=== PATIENT | female | born 1940 | race Caucasian/White ===

== ENCOUNTER 2016-12-27 09:12 | Day surgery (SDC) | payer MEDICARE ==
--- NOTE | 2016-12-27 08:13 | HP ---
DATE OF SURGERY: 12/27/2016 HISTORY OF PRESENT ILLNESS: The patient is a 76 year-old with problems with mid to upper esophagus, trouble swallowing, esophagus completely a few weeks ago and had last dilatation five years ago in [place]. She has worse swallowing problems and in need of upper endoscopy possible dilatation. PAST MEDICAL HISTORY: Neuropathy, diverticulosis, gastritis, reflux, esophageal problems in the past. Hard of hearing. PAST SURGICAL HISTORY: She had endoscopy in the past. Appendectomy, cholecystectomy, tonsillectomy, eye surgery, neck surgery, hernia repair. MEDICATIONS: None on a regular basis. ALLERGIES: ALLERGY TO SOME MEDICATION THE NAME OF WHICH SHE DID NOT KNOW. ALL ORAL MEDICINES CAUSE VOMITING, DIARRHEA, RASH ACCORDING TO THE PATIENT. FAMILY HISTORY: Stroke, hypertension, high blood pressure, heart disease, diabetes, cancer. SOCIAL HISTORY: No smoking or alcohol abuse. REVIEW OF SYSTEMS: Ten systems reviewed per admission assessment and as noted above. Negative or noncontributory as noted above. PHYSICAL EXAMINATION: GENERAL: No acute distress. HEENT: Sclerae nonicteric. NECK: No JVD. CHEST: Equal excursion, nonlabored breathing. CVS: Regular rate and rhythm. ABDOMEN: Soft. No peritoneal signs. EXTREMITIES: No significant edema. NEURO: Alert, moving extremities symmetrically. No gross motor deficits noted. IMPRESSION: Dysphagia, whether she has esophagitis, reflux or other etiology is unclear. She is not taking any medications at this point. I felt she would benefit from upper endoscopy possible biopsy, possible dilatation pending on operative findings. Risks and benefits explained in detail but not limited to bleeding or infection, small risk of bowel injury or perforation possibly requiring open procedure, risk of ongoing morbidity/mortality, small risk of missed or nondiagnosis or incomplete exam, possibility that she could have more of a functional problem with mechanical narrowing, possibility of no improvement in her symptoms, possibility of requiring referral to a specialist, other procedures. She understands and agrees to the planned procedure and will proceed with EGD, possible biopsy, possible dilatation as an outpatient.
[~2016-12-27 09:12] MED LIST: DIPRIVAN 200 MG/20 ML IV ONE; Ketamine HCl 50 MG/ML IV ONE; Lactated Ringers 1,000 ML IV SCH
[2016-12-27] MEDS ORDERED: Lactated Ringers 1,000 ML IV ONE (09:19)
--- NOTE | 2016-12-27 11:16 | OP ---
SURGERY DATE/TIME: 12/27/2016 0958 PREOPERATIVE DIAGNOSIS: Dysphagia. POSTOPERATIVE DIAGNOSES: 1) Mild erosive gastritis. 2) Question of hiatal hernia. 3) Proximal esophageal narrowing and spasm. PROCEDURES: 1) EGD with cold biopsy of antrum for Helicobacter pylori. 2) Esophageal balloon dilatation proximal esophagus (up to size 20 balloon dilator). SURGEON: Dr. Jasiel Pardo. ANESTHESIA: MAC. ESTIMATED BLOOD LOSS: Minimal. INDICATIONS: As noted above. Risks and benefits explained in detail and not limited to and consent obtained. DESCRIPTION OF PROCEDURE AND FINDINGS: The patient was taken to the operating room. MAC anesthesia induced. After official time out and no disagreement with planned procedure, bite block positioned. Video gastroscope easily passed down the oropharynx. There was proximal esophageal narrowing and spasm, this is where she is having her symptoms. There was no marshall mass here but it was felt that she would benefit from dilatation of this area. The scope was able to be passed through this down through the gastroesophageal junction down through the patent pylorus to the junction of the second and third portion of duodenum. Duodenum and duodenal bulb grossly unremarkable. Back in the stomach there was some mild erosive gastritis, some patchy areas of erosions. Cold biopsy is taken to evaluate for Helicobacter pylori. Good hemostasis noted. On retroflex, it appeared that she had hiatal hernia although difficult to tell the degree of it given the angulation of her stomach. The scope was straightened. There were no signs of any obvious masses, polyps or other mucosal lesions. The scope straightened. The gastroesophageal junction noted to be about 34 cm. Z-line was crisp. No signs of any marshall esophagitis, masses, or narrowing down this area. The remainder of the esophagus grossly unremarkable. Tertiary contractions of the esophagus. Again, the proximal esophagus was narrow. There were no signs of any obvious masses. As she is having symptoms, it was felt that she would benefit from dilatation of the area. The scope was then passed back the stomach. Balloon catheter carefully inserted and pulled back up to the proximal esophagus and carefully inflated through two stages for about 30 to 45 seconds a piece and then the final stage up to size 20 balloon dilator less than 2 minutes. The balloon had been deflated and then removed. The scope passed back down the stomach and then gradually withdrawn. Again the area was much more widely patent. There was no evidence of any full thickness issues or injury secondary to balloon dilatation. The scope was withdrawn. The patient tolerated the procedure well. Findings discussed with the family out in the waiting area.
[2016-12-27 12:45] VITALS: BP 138/78; PULSE 56
[2016-12-27 12:46] VITALS: O2SAT 99
== END 2016-12-27 12:30 | disposition home or self-care (01) ==
LOC: SDC 09:12
PROVIDERS: ATTEND Surgery
PROC: 0DB68ZX Excision of Stomach, Via Natural or Artificial Opening Endoscopic, Diagnostic (ICD-10-PCS; principal; 2016-12-27)
PROC: 0D718ZZ Dilation of Upper Esophagus, Via Natural or Artificial Opening Endoscopic (ICD-10-PCS; 2016-12-27)
DX: K29.00 Acute gastritis without bleeding (principal); K22.2 Esophageal obstruction; K22.4 Dyskinesia of esophagus; K21.9 Gastro-esophageal reflux disease without esophagitis; R13.10 Dysphagia, unspecified; G62.9 Polyneuropathy, unspecified
CPT/HCPCS: 00740; 87081; 99100; C1726; J2704

== ENCOUNTER 2017-04-28 05:56 | Day surgery (SDC) | payer MEDICARE ==
[2017-04-28] MEDS ORDERED: Lactated Ringers 1,000 ML IV SCH (06:30)
--- NOTE | 2017-04-28 07:52 | OP ---
SURGERY DATE/TIME: 04/28/2017 0700 PREOPERATIVE DIAGNOSES: 1) Abdominal pain. 2) History of colon polyps. POSTOPERATIVE DIAGNOSIS: Normal colon. PROCEDURE: Colonoscopy. SURGEON: Pierre Webber M.D. ANESTHESIA: MAC by Ismael Olivas CRNA. ESTIMATED BLOOD LOSS: None. SPECIMENS: None. DESCRIPTION OF PROCEDURE: After informed written consent was obtained, the patient was taken to the endoscopy suite. She underwent monitored anesthesia and a digital rectal exam showed normal sphincter tone and no internal lesions. The scope was inserted in the rectum and sequentially the entire colonic mucosa was traversed. The level of cecum was reached and verified with direct visualization of ileocecal valve. Upon withdrawal careful mucosal inspection revealed no gross mucosal abnormalities. Prep was noted to be good. Prior to withdrawal retroflexion was performed and showed no internal lesions. The scope was removed and the patient was transferred to the recovery room in excellent condition.
[2017-04-28] MEDS ORDERED: Versed 2 MG/2 ML Injection IV ONE (08:10)
[2017-04-28] MEDS ORDERED: DIPRIVAN 200 MG/20 ML IV ONE (08:10)
[2017-04-28 08:47] VITALS: BP 119/87; PULSE 57; O2SAT 100
== END 2017-04-28 08:45 | disposition home or self-care (01) ==
LOC: SDC 05:56
PROVIDERS: ATTEND Family Medicine
PROC: 0DJD8ZZ Inspection of Lower Intestinal Tract, Via Natural or Artificial Opening Endoscopic (ICD-10-PCS; principal; 2017-04-28)
DX: R10.9 Unspecified abdominal pain (principal); Z86.010 Personal history of colon polyps
CPT/HCPCS: 00810; 99100; J2250; J2704

== ENCOUNTER 2019-07-30 18:42 | Emergency (ER) | payer MEDICARE ==
[2019-07-30 19:12] VITALS: O2SAT 98
[2019-07-30] MEDS ORDERED: DELTASONE 20 MG PO ONE (19:21)
[2019-07-30] MEDS ORDERED: Pepcid 20 MG PO ONE (19:21)
[2019-07-30] MEDS ORDERED: BENADRYL 25 MG CAPSULE PO ONE (19:22)
[2019-07-30] MEDS ORDERED: DELTASONE 20 MG ONE (19:25)
[2019-07-30] MEDS ORDERED: BENADRYL 25 MG CAPSULE ONE (19:25)
[2019-07-30] MEDS ORDERED: Pepcid 20 MG ONE ×2 (19:25→19:29)
--- NOTE | 2019-07-30 19:36 | ERPHSYRPT ---
- History of Present Illness Source: patient Exam Limitations: no limitations Patient Subjective Stated Complaint: Pt states she got stung on left hand at approximately 1530 today. Swelling, pain, itching, and redness to left hand and up arm to armpit. Denies shortness of breath. States initially she had nausea and lightheadedness but it has subsided. Triage Nursing Assessment: Redness and swelling to entire left hand. Slight redness up in to wrist. Lung sounds clear equal non labored bilaterally. Physician History: patient was stung by a black wasp on the left palm at the base of the thumb 4 hours ago. Patient has localized swelling to the palm, but no other symptoms. Timing/Duration: today, hour(s) (4) Quality: itchy, painful Severity: moderate Location: other (left palm at the thenar eminence) Possible Causes: insect sting Modifying Factors: Improves With: other (cold/ice helps improve the discomfort) Associated Symptoms: No blisters, No change in skin texture, No difficulty breathing, No edema, No fever, No flushing, No headache, No hives, No jaundice, No malaise, No nasal congestion, No numbness, No pallor, No paresthesia, No petechiae, No rash, No sore throat, No swelling/mass/lumps, No tingling Allergies/Adverse Reactions: No Known Drug Allergies Allergy (Unverified 07/30/19 19:16) Hx Tetanus, Diphtheria Vaccination/Date Given: No Hx Influenza Vaccination/Date Given: No Hx Pneumococcal Vaccination/Date Given: No - Review of Systems Constitutional: No Fever, No Chills Eyes: No Discharge, No Eye Redness, No Itchy, No Photophobia, No Double Vision Ears, Nose, & Throat: No Nose Congestion, No Nose Discharge, No Mouth Pain, No Mouth Swelling, No Throat Pain, No Throat Swelling, No Hoarse, No Painful Swallowing, No Stridor Respiratory: No Cough, No Dyspnea Cardiac: No Chest Pain, No Edema, No Syncope Abdominal/Gastrointestinal: No Abdominal Pain, No Nausea, No Vomiting, No Diarrhea Genitourinary Symptoms: No Hematuria, No Urinary Retention Musculoskeletal: No Back Pain, No Neck Pain Skin: No Rash Neurological: No Dizziness, No Focal Weakness, No Sensory Changes Psychological: No Symptoms, No Anxiety, No Hallucinations Endocrine: No Symptoms Hematologic/Lymphatic: No Easy Bleeding, No Easy Bruising All Other Systems: Reviewed and Negative - Past Medical History Pertinent Past Medical History: Yes Neurological History: No Pertinent History ENT History: No Pertinent History Cardiac History: No Pertinent History Respiratory History: No Pertinent History Endocrine Medical History: Liver Disease Musculoskeletal History: Other GI Medical History: Other History: No Pertinent History Psycho-Social History: No Pertinent History Female Reproductive Disorders: No Pertinent History Other Medical History: Undiagnosed abdominal pain. Has CT ordered for this week. - Past Surgical History Past Surgical History: Yes Neuro Surgical History: No Pertinent History Cardiac: No Pertinent History Respiratory: No Pertinent History Gastrointestinal: Appendectomy, Cholecystectomy, Hernia Repair, Other Genitourinary: No Pertinent History Musculoskeletal: No Pertinent History Female Surgical History: Hysterectomy Other Surgical History: Esophageal repair - Social History Smoking Status: Never smoker Exposure to second hand smoke: No Drug Use: none Patient Lives Alone: No - Female History Hx Last Menstrual Period: post Hx Now: No - Nursing Vital Signs Nursing Vital Signs: Initial Vital Signs Temperature 98.0 F 07/30/19 19:04 Pulse Rate 72 07/30/19 19:04 Respiratory Rate 18 07/30/19 19:04 Blood Pressure 158/82 07/30/19 19:04 O2 Sat by Pulse Oximetry 98 07/30/19 19:04 Pain Scale Pain Intensity 5 - Physical Exam SpO2: 98 Ordered Tests: Medication Summary Discontinued Medications Generic Name Dose Route Start Last Admin Trade Name Yusufq PRN Reason Stop Dose Admin Diphenhydramine HCl 25 mg 07/30/19 19:22 07/30/19 19:32 Benadryl 25 Mg Capsule PO 07/30/19 19:23 25 mg STAT ONE Administration Diphenhydramine HCl Confirm 07/30/19 19:25 Benadryl 25 Mg Capsule Administered 07/30/19 19:26 Dose 25 mg .ROUTE .STK-MED ONE Famotidine 40 mg 07/30/19 19:21 07/30/19 19:27 Pepcid 20 Mg PO 07/30/19 19:22 40 mg STAT ONE Administration Famotidine Confirm 07/30/19 19:25 Pepcid 20 Mg Administered 07/30/19 19:26 Dose 20 mg .ROUTE .STK-MED ONE Famotidine Confirm 07/30/19 19:29 Pepcid 20 Mg Administered 07/30/19 19:30 Dose 20 mg .ROUTE .STK-MED ONE Prednisone 60 mg 07/30/19 19:21 07/30/19 19:30 Deltasone 20 Mg PO 07/30/19 19:22 60 mg STAT ONE Administration Prednisone Confirm 07/30/19 19:25 Deltasone 20 Mg Administered 07/30/19 19:26 Dose 60 mg .ROUTE .STK-MED ONE - Departure Departure Disposition: Home Clinical Impression: Elevated blood pressure reading without diagnosis of hypertension Local reaction to insect sting Qualifiers: Encounter type: initial encounter Injury intent: accidental or unintentional Qualified Code(s): T63.481A - Toxic effect of venom of other arthropod, accidental (unintentional), initial encounter Condition: Good Critical Care Time: No Referrals: JANAE SEXTON [Primary Care Provider] - Instructions: DASH Diet, Insect Bites and Stings (DC) Additional Instructions: apply Ice to affected area for 15 minutes on, 45 minutes off QID for 3 days Prescriptions: Loratadine 10 mg [Claritin 10 mg] 10 mg PO DAILY #10 tablet Prednisone 20 mg [Deltasone 20 mg] 60 mg PO DAILY #9 tablet
[2019-07-30 19:48] VITALS: BP 139/83; PULSE 55
== END 2019-07-30 20:00 | disposition home or self-care (01) ==
LOC: ED 18:42
DX: M79.642 Pain in left hand (principal); T63.481A Toxic effect of venom of other arthropod, accidental (unintentional), initial encounter; R03.0 Elevated blood-pressure reading, without diagnosis of hypertension
CPT/HCPCS: 99283; A9270-GY

== ENCOUNTER 2024-07-04 10:29 | Day surgery (SDC) | payer MEDICARE ==
[2013-08-03 13:23] VITALS: BP 118/75
[2024-07-04] MEDS ORDERED: Decadron 4 MG INJ IV ONE (10:30)
[2024-07-04] MEDS ORDERED: Sodium Chloride 0.9(Preservative Free) 10 ML IJ ONE (10:30)
[2024-07-04] MEDS ORDERED: DIPRIVAN 200 MG/20 ML IV ONE (12:27)
[2024-07-04] MEDS ORDERED: Xylocaine-Mpf 2% 5 Ml Vial ONE (12:28)
--- NOTE | 2024-07-04 13:42 | XRAY ---
Indication: Left L4-S1 SUDHA. Intraoperative fluoroscopy provided for 25 seconds. 4 digital spot images submitted for interpretation demonstrates posterior needle tips projecting over the expected left L4 and L5 nerve roots. Small amount of contrast injected for needle tip placement. Correlate with intraoperative findings/report.
--- NOTE | 2024-07-04 13:51 | XRAY ---
25 seconds of fluoroscopy was used in surgery for a left L4-S1 transforaminal SUDHA.
[2024-07-04] MEDS ORDERED: Lactated Ringers 1,000 ML IV ONE (14:33)
== END 2024-07-04 12:53 ==
LOC: SDC-PAIN 10:29
PROVIDERS: ATTEND Psychiatry & Neurology Pain Medicine
DX: M54.16 Radiculopathy, lumbar region (principal)
CPT/HCPCS: 64483; 64484; 72100; 77003; J1100; J2704; Q9966

== ENCOUNTER 2024-12-07 00:16 | Observation (INO) | payer MEDICARE ==
--- NOTE | 2024-12-07 00:42 | ERPHSYRPT ---
- History of Present Illness Time Seen by Provider: 12/07/24 00:23 Historian: patient, family Exam Limitations: no limitations Patient Subjective Stated Complaint: nausea and vomiting since yesterday Triage Nursing Assessment: Pt brought back by wheelchair, spouse at bedside. Pt c/o vomiting and diarrhea off and on x24 hours. Abd soft with active bs x4 quad, nontender on palpation. Physician History: 84-year-old female with history of coronary artery disease, hyperlipidemia, peripheral neuropathy presented in the ER with complaints of nausea vomiting diarrhea with some abdominal discomfort since yesterday. Patient reports having multiple episodes of nonprojectile, nonbilious vomiting without hematemesis and also having multiple episodes of loose watery stool. She is not able to hold much down, feels weak fatigued tired and dehydrated. No fever or chills reported. Denies any known sick contact. Patient blood pressure is in 70s on presentation in the ER. Reports feeling dizzy and lightheaded with standing. Allergies/Adverse Reactions: amoxicillin Adverse Reaction (Verified 12/07/24 00:43) clarithromycin Adverse Reaction (Verified 12/07/24 00:46) levofloxacin Adverse Reaction (Verified 12/07/24 00:45) Tetracyclines Adverse Reaction (Verified 12/07/24 00:45) Home Medications: Aspirin 81 gm Chew [Baby Aspirin 81 mg Chew] 1 tab PO DAILY 12/07/24 [History] Gabapentin 100 mg PO TID 12/07/24 [History] Losartan Potassium 25 mg PO DAILY 12/07/24 [History] Hx Tetanus, Diphtheria Vaccination/Date Given: No Hx Influenza Vaccination/Date Given: No Hx Pneumococcal Vaccination/Date Given: No Travel Risk - International Travel Have you traveled outside of the country in past 3 weeks: No - Emerging Infectious Disease Are you exhibiting symptoms associated with any current EIDs: Yes Symptoms: Diarrhea, Vomitting - Review of Systems Constitutional: Fatigue, Weakness Eyes: No Symptoms Ears, Nose, & Throat: No Symptoms Respiratory: No Symptoms Cardiac: No Symptoms Abdominal/Gastrointestinal: Abdominal Pain, Nausea, Vomiting, Diarrhea Genitourinary Symptoms: No Symptoms Musculoskeletal: No Symptoms Skin: No Symptoms Neurological: No Symptoms Endocrine: No Symptoms - Past Medical History Pertinent Past Medical History: Yes Neurological History: Peripheral Neuropathy ENT History: No Pertinent History Cardiac History: Angina, Coronary Artery Disease, High Cholesterol, Hypertension Respiratory History: No Pertinent History Endocrine Medical History: No Pertinent History Musculoskeletal History: Degenerative Disk Disease, Fractures, Osteoarthritis GI Medical History: Other History: No Pertinent History Psycho-Social History: No Pertinent History Female Reproductive Disorders: No Pertinent History Other Medical History: STATES HIGH CHOLESTEROL BUT NOT ON MEDICATION DUE TO ALLERGIES. STATES HAS OCCASIONAL ANGINA - "VERY SELDOM" - NO NITROGLYCERIN. SEE COMPENSATION AND BENEFITS ANALYST. OTHER PMHX GERD, HIATAL HERNIA, ESOPHAGUS STRICTURE, SKIN CANCER, MACULAR DEGENERATION LEFT EYE, HEARING LOSS RIGHT EAR. SX HX: APPENDECTOMY, CHOLECYSTECTOMY, COMPLETE HYSTERECTOMY, FATTY TUMOR LEFT SCAPULA REGION AND ABDOMINAL WALL, HIATAL HERNIA REPAIR - Past Surgical History Past Surgical History: Yes Neuro Surgical History: No Pertinent History Cardiac: No Pertinent History Respiratory: No Pertinent History Gastrointestinal: Appendectomy, Cholecystectomy, Hernia Repair, Other Genitourinary: No Pertinent History Musculoskeletal: No Pertinent History Female Surgical History: Hysterectomy Other Surgical History: Esophageal repair - Social History Smoking Status: Never smoker Exposure to second hand smoke: No Drug Use: none Patient Lives Alone: No - Social Determinants of Health Will the patient participate in the screening: Yes Do you worry about a steady place to live?: No Do you have any problems with any of the following?: No known problems In the past 12 months,have you had to go without utilities?: No Transportation Issues: No Has anyone in your support network made you feel unsafe?: No Have you or anyone in your house had to go without enough: No - Nursing Vital Signs Nursing Vital Signs: Initial Vital Signs Temperature 97.8 F 12/07/24 00:28 Pulse Rate 100 H 12/07/24 00:28 Respiratory Rate 18 12/07/24 00:28 Blood Pressure 71/54 12/07/24 00:28 O2 Sat by Pulse Oximetry 94 L 12/07/24 00:28 Pain Scale Pain Intensity 3 - Physical Exam General Appearance: no apparent distress, alert Eye Exam: PERRL/EOMI Ears, Nose, Throat Exam: normal ENT inspection Neck Exam: normal inspection, full range of motion Respiratory Exam: normal breath sounds, lungs clear Cardiovascular Exam: regular rate/rhythm, normal heart sounds Gastrointestinal/Abdomen Exam: soft, normal bowel sounds, tenderness (Minimal generalized tenderness to deep palpation) Back Exam: normal inspection, normal range of motion Extremity Exam: normal inspection, normal range of motion Neurologic Exam: alert, oriented x 3, cooperative, spragger II-XII nml as tested, normal mood/affect, nml cerebellar function, nml station & gait, sensation nml, No motor deficits Skin Exam: normal color SpO2 Interpretation: normal SpO2: 94 O2 Delivery: Room Air Ordered Tests: Active Orders 24 hr Category Date Time Status IV Insertion STAT Care 12/07/24 00:38 Active NPO (ED) STAT Care 12/07/24 00:38 Active ABDOMEN AND PELVIS W/0 CONTRAS [CT] Stat Exams 12/07/24 02:18 Completed CBC W DIFF Stat Lab 12/07/24 01:55 Completed CMP Stat Lab 12/07/24 01:55 Completed LIPASE Stat Lab 12/07/24 01:55 Completed UA W/RFX UR CULTURE Stat Lab 12/07/24 00:38 Ordered Medication Summary Discontinued Medications Generic Name Dose Route Start Last Admin Trade Name Freq PRN Reason Stop Dose Admin Sodium Chloride 1,000 mls @ 999 mls/hr 12/07/24 00:38 12/07/24 01:41 Sodium Chloride 0.9% 1000 Ml IV 12/07/24 01:38 999 mls/hr .Q1H1M STA Administration Sodium Chloride Confirm 12/07/24 01:40 Sodium Chloride 0.9% 1000 Ml Administered 12/07/24 01:41 Dose 1,000 mls @ ud .ROUTE .STK-MED ONE Ondansetron HCl 4 mg 12/07/24 00:38 12/07/24 01:41 Ondansetron Hcl 4 Mg/2 Ml Vial IV 12/07/24 00:39 4 mg STAT ONE Administration Ondansetron HCl Confirm 12/07/24 01:40 Ondansetron Hcl 4 Mg/2 Ml Vial Administered 12/07/24 01:41 Dose 4 mg .ROUTE .STK-MED ONE Lab/Rad Data: Laboratory Result Diagrams 12/07/24 01:55 12/07/24 01:55 Laboratory Results 12/07/24 12/07/24 12/07/24 Range/Units 01:55 01:55 00:50 WBC 9.7 (3.98-10.04) x10^3/uL RBC 4.51 (3.93-5.22) x10^6/uL Hgb 13.0 (11.2-15.7) g/dL Hct 40.5 (34.1-44.9) % MCV 89.8 (79.4-94.8) fL MCH 28.8 (25.6-32.2) pg MCHC 32.1 L (32.2-35.5) g/dL RDW 13.6 (11.7-14.4) % Plt Count 254 (182-369) x10^3/uL MPV 10.5 (9.4-12.3) fL Gran % 87.2 H (34.0-71.1) % Immature Gran % (Auto) 0.3 (0.001-0.429) % Nucleat RBC Rel Count 0.0 (0.00-0.2) % Eos # (Auto) 0.01 L (0.04-0.36) x10^3/uL Immature Gran # (Auto) 0.03 (0.001-0.031) x10^3u/L Absolute Lymphs (auto) 0.56 L (1.18-3.74) x10^3/uL Absolute Monos (auto) 0.63 (0.24-0.86) x10^3/uL Absolute Nucleated RBC 0.00 (0.00-0.012) x10^3u/L Lymphocytes % 5.8 L (19.3-51.7) % Monocytes % 6.5 (4.7-12.5) % Eosinophils % 0.1 L (0.7-5.8) % Basophils % 0.1 (0.1-1.2) % Absolute Granulocytes 8.45 H (1.56-6.13) x10^3/uL Basophils # 0.01 (0.01-0.08) x10^3/uL Sodium 136 (135-145) mmol/L Potassium 4.1 (3.5-5.1) mmol/L Chloride 108 H (98-107) mmol/L Carbon Dioxide 18 L (22-30) mmol/L Anion Gap 13.3 (5-15) MEQ/L BUN 28 H (7-17) mg/dL Creatinine 0.79 (0.52-1.04) mg/dL Estimated GFR 73.3 ML/MIN Glucose 137 H (74-106) mg/dL Calcium 8.9 (8.4-10.2) mg/dL Total Bilirubin 0.80 (0.2-1.3) mg/dL AST 26 (14-36) U/L ALT 16 (0-35) U/L Alkaline Phosphatase 69 (38-126) U/L Serum Total Protein 6.4 (6.3-8.2) g/dL Albumin 3.8 (3.5-5.0) g/dL Lipase 75 (23-300) U/L Influenza Type A Ag NEGATIVE (NEGATIVE) Influenza Type B Ag NEGATIVE (NEGATIVE) RSV (PCR) NEGATIVE (NEGATIVE) SARS-CoV-2 (PCR) NEGATIVE (NEGATIVE) - Progress Progress: improved, re-examined Progress Note: 12/07/24 04:11 84-year-old is evaluated in the ER for nausea vomiting diarrhea with some abdominal discomfort. Patient has history of multiple abdominal surgeries in the past. She is given fluids and symptomatic treatment, on reevaluation she is feeling better. Workup showed normal white count, chemistries with some element of dehydration and no other acute electrolyte derangements, CT abdomen pelvis consistent with mildly dilated jejunal/ileal loops consistent with subacute intestinal obstruction Discussed with hospitalist, reviewed history, workup and agreed with observation admission I have shared the results of workup with patient and family and plan of admission which they understand and agree with plan. Discussed with Dr.: Other (Dr. Briggs hospitalist) Will see patient in: hospital (observation) Counseled pt/family regarding: lab results, diagnosis, rad results Medical Desision Making - Independent Historian Additional History obtained from: Spouse - Discussion of managment Care discussed with:: hospitalist Reviewed:: Test results Agreed on:: Treatment plan, place in obs Will see patient: in hospital - Diagnostic Testing Diagnostic test were ordered, analyzed, and reviewed by me: Yes Radiological Interpretation: Reviewed by me - Risk of complications The pt has a mod risk of morbidity or mortality based on: Need for prescription drug management The pt has a high risk of morbidity or mortality based on: Decision regarding hospitilization or escalation of hosp level of care - Departure Departure Disposition: Observation Clinical Impression: Subacute intestinal obstruction Condition: Stable Critical Care Time: No Referrals: JANAE SEXTON [Primary Care Provider] - Follow up/PCP as directed
[2024-12-07 01:40] LABS: INFLUENZA A NEGATIVE (NEGATIVE); INFLUENZA B NEGATIVE (NEGATIVE); RESPIRATORY SYNCTIAL VIRUS NEGATIVE (NEGATIVE); SARS-CoV-2 Xpert Express NEGATIVE (NEGATIVE)
[2024-12-07] MEDS ORDERED: Zofran 4 MG/2 ML VIAL ONE (01:40)
[2024-12-07] MEDS ORDERED: Sodium Chloride 0.9% 1000 ML 1,000 ML ONE (01:40)
[2024-12-07] MEDS: Sodium Chloride 0.9% 1000 ML 1,000 ML IV STA (01:41)
[2024-12-07] MEDS: Zofran 4 MG/2 ML VIAL IV ONE (01:41)
[2024-12-07 02:00] LABS: Absolute Neutrophil Ct (ANC) 8.45 x10^3/uL (1.56-6.13); BASOPHIL % 0.1 % (0.1-1.2); Basophil (Absolute #) 0.01 x10^3/uL (0.01-0.08); Eosinophil % 0.1 % (0.7-5.8); Eosinophil (Absolute #) 0.01 x10^3/uL (0.04-0.36); Hematocrit 40.5 % (34.1-44.9); IMMATURE GRAN # 0.03 x10^3u/L (0.001-0.031); IMMATURE GRAN % 0.3 % (0.001-0.429); Lymphocyte (Absolute #) 0.56 x10^3/uL (1.18-3.74); Lymphocytes % 5.8 % (19.3-51.7); Mean Cell Volume 89.8 fL (79.4-94.8); Mean Corpuscular Hemoglobin 28.8 pg (25.6-32.2); Mean Corpuscular Hgb Concent. 32.1 g/dL (32.2-35.5); Mean Platelet Volume 10.5 fL (9.4-12.3); Monocyte (Absolute #) 0.63 x10^3/uL (0.24-0.86); Monocytes % 6.5 % (4.7-12.5); Neutrophil % 87.2 % (34.0-71.1); Platelet Count 254 x10^3/uL (182-369); Red Blood Count 4.51 x10^6/uL (3.93-5.22); Red Cell Distribution Width 13.6 % (11.7-14.4); White Blood Count 9.7 x10^3/uL (3.98-10.04)
[2024-12-07 02:14] LABS: ALBUMIN 3.8 g/dL (3.5-5.0); ANION GAP 13.3 MEQ/L (5-15); BILIRUBIN,TOTAL 0.8 mg/dL (0.2-1.3); Calcium 8.9 mg/dL (8.4-10.2); Creatinine 1 0.79 mg/dL (0.52-1.04); EST GLOMERULAR FILTRATION RATE 73.3 ML/MIN; Potassium 4.1 mmol/L (3.5-5.1); Total Protein 6.4 g/dL (6.3-8.2)
--- NOTE | 2024-12-07 03:07 | XRAY ---
CLINICAL HISTORY: vomiting/diarrhea COMPARISON: 03/26/2015 10:04:41 [employer] OPERATOR TECHNIQUE: Contiguous axial images were obtained from the level of the diaphragm to the pubic symphysis without intravenous or oral contrast. Coronal and sagittal reconstructions were likewise performed and indicated to increase the sensitivity for detecting clinically relevant pathology. CT scan was performed according to ALARA (as low as reasonable achievable). FINDINGS: The visualized lung bases are clear. Sliding hiatus hernia. Evaluation of the abdominal and pelvic visceral organs is limited without intravenous contrast. The unenhanced liver, spleen, pancreas, and adrenal glands are grossly unremarkable. The gallbladder is removed. The kidneys are normal in size and attenuation without obvious calcification. There is no hydronephrosis or perinephric stranding. The ureters are normal in caliber. No adenopathy or fluid collections are seen. Mildly dilated jejunal and proximal ileal loops with maximum diameter measures up to 3.2 cm is noted involving left mid and lower quadrant of abdomen. No obvious acute transition point is seen. The aorta is normal in caliber. The urinary bladder is normal in contour. Pelvic viscera are grossly unremarkable. No aggressive appearing osseous lesions are identified. Multiple small uncomplicated colonic diverticulosis IMPRESSION: Mildly dilated jejunal and proximal ileal loops with maximum diameter measures up to 3.2 cm is noted involving left mid and lower quadrant of abdomen. No obvious acute transition point noted- suggest possibility of subacute intestinal obstruction-new finding. Multiple small uncomplicated colonic diverticulosis. Sliding hiatus hernia. Electronically Signed by: Antelmo Gomez MD. (12/07/2024 03:02:10 EST)
[2024-12-07 04:41] LABS: Appearance Clear (Clear); Bacteria None Seen /HPF (None Seen); Bilirubin Negative (Negative); Blood Small (Negative); Epithelial Cells Rare /HPF (None Seen); Glucose, Urine Negative (Negative); Ketones Trace (Negative); Leukocyte Esterase Negative (Negative); Nitrite Negative (Negative); Protein,Urine Dip Trace (Negative); Specific Gravity 1.025 (1.005-1.030); Urobilinogen 0.2 mg/dL (0.2)
--- NOTE | 2024-12-07 06:23 | PCM.HP ---
History of Present Illness - Chief Complaint Chief Complaint: Subacute intestinal obstruction Date: 12/07/24 History of Present Illness: Ms. RIVERA is a 84 year old female with a past medical history significant for hypertension, neuropathy and abdominal surgeries who presented to the hospital with complaints of abdominal pain, nausea and projectile vomiting for the past 24hours. She also noted having some watery diarrhea. No recent sick contacts. She has not been able to eat/drink much. She was hypotensive with blood pressures in the 70s upon arrival and received IVF boluses. CT scan abd was done and revealed mildly dilated jejunal and proximal ileal loops consistent with obstruction. No fever/chills. No chest pain or shortness of breath. No dysuria, hematuria or foamy urine. She does have significant allergies to most antibiotics but will take them intravenously. - Review of Systems Constitutional: No Fever, No Chills Eyes: No Vision Changes Ears, Nose, & Throat: No Throat Pain, No Throat Swelling Respiratory: No Cough, No Orthopnea, No Short Of Breath Cardiac: No Chest Pain, No Palpitations Abdominal/Gastrointestinal: Abdominal Pain, Nausea, Vomiting, Diarrhea Genitourinary Symptoms: No Dysuria, No Frequency Musculoskeletal: No Arthralgias, No Back Pain, No Neck Pain Skin: No Rash Neurological: Dizziness, Lethargy Psychological: No Suicidal Ideations Endocrine: No Polyuria, No Polydipsia Hematologic/Lymphatic: No Blood Clots Medications & Allergies Home Medications: Home Medication List Aspirin 81 gm Chew [Baby Aspirin 81 mg Chew] 1 tab PO DAILY 12/07/24 [History Confirmed 12/07/24] Gabapentin 100 mg PO TID 12/07/24 [History Confirmed 12/07/24] Losartan Potassium 25 mg PO DAILY 12/07/24 [History Confirmed 12/07/24] Allergies/Adverse Reactions: Allergies Allergy/AdvReac Type Severity Reaction Status Date / Time acetaminophen [From Tylenol] Allergy Severe Verified 12/07/24 06:05 amoxicillin AdvReac Verified 12/07/24 00:43 clarithromycin AdvReac Verified 12/07/24 00:46 levofloxacin AdvReac Verified 12/07/24 00:45 Tetracyclines AdvReac Verified 12/07/24 00:45 - Past Medical History Past Medical History: Yes Neurological History: Peripheral Neuropathy, Stroke ENT History: No Pertinent History Cardiac History: Angina, Coronary Artery Disease, High Cholesterol, Hypertension Respiratory History: No Pertinent History Endocrine Medical History: No Pertinent History Musculoskelatal History: No Pertinent History GI Medical History: Other History: No Pertinent History Pyscho-Social History: No Pertinent History Reproductive Disorders: No Pertinent History Comment: STATES HIGH CHOLESTEROL BUT NOT ON MEDICATION DUE TO ALLERGIES. STATES HAS OCCASIONAL ANGINA - "VERY SELDOM" - NO NITROGLYCERIN. SEE TOPOGRAPHIC COMPUTATOR. OTHER PMHX GERD, HIATAL HERNIA, ESOPHAGUS STRICTURE, SKIN CANCER, MACULAR DEGENERATION LEFT EYE, HEARING LOSS RIGHT EAR. SX HX: APPENDECTOMY, CHOLECYSTECTOMY, COMPLETE HYSTERECTOMY, FATTY TUMOR LEFT SCAPULA REGION AND ABDOMINAL WALL, HIATAL HERNIA REPAIR - Past Surgical History Past Surgical History: Yes Neuro Surgical History: No Pertinent History Cardiac History: No Pertinent History Respiratory Surgery: No Pertinent History GI Surgical History: Appendectomy, Cholecystectomy, Hernia Repair, Other Genitourinary Surgical Hx: No Pertinent History, Other Musculskeletal Surgical Hx: No Pertinent History Female Surgical History: Hysterectomy Other Surgical History: Esophageal repair, kidney stones - Social History Smoking Status: Never smoker Exposure to second hand smoke: No Alcohol: None Drug Use: none - Social Determinants of Health Will the patient participate in the screening: Yes Do you worry about a steady place to live?: No Do you have any problems with any of the following?: No known problems In the past 12 months,have you had to go without utilities?: No Have you or anyone in your house had to go without enough: No Transportation Issues: No Has anyone in your support network made you feel unsafe?: No - Physical Exam Vital Signs: Vital Signs - 24 hr Temp Pulse Resp BP BP Pulse Ox 12/07/24 05:02 76 16 86/49 93 L 12/07/24 05:00 69 16 75/45 94 L 12/07/24 04:30 81/54 91 L 12/07/24 04:13 94 L 12/07/24 04:02 82 16 91/51 93 L 12/07/24 04:00 70/47 90 L 12/07/24 03:30 83/47 94 L 12/07/24 03:00 71 16 101/44 93 L 12/07/24 02:59 93 L 12/07/24 02:50 94 L 12/07/24 02:40 94 L 12/07/24 02:31 95 12/07/24 02:10 85/42 95 12/07/24 02:09 77 16 85/42 97 12/07/24 01:38 91/43 12/07/24 01:00 83 16 110/52 95 12/07/24 00:28 97.8 F 100 H 18 71/54 94 L General Appearance: no apparent distress Neurologic Exam: alert, oriented x 3 Ears, Nose, Throat Exam: dry mucous membranes Neck Exam: supple Respiratory Exam: No respiratory distress Cardiovascular Exam: regular rate/rhythm Gastrointestinal/Abdomen Exam: soft, tenderness Extremity Exam: No pedal edema, No swelling Skin Exam: normal color, No rash Results - Labs Lab/Micro Results: Lab Results-Last 24 Hours 12/07/24 12/07/24 12/07/24 Range/Units 00:50 01:55 01:55 WBC 9.7 (3.98-10.04) x10^3/uL RBC 4.51 (3.93-5.22) x10^6/uL Hgb 13.0 (11.2-15.7) g/dL Hct 40.5 (34.1-44.9) % MCV 89.8 (79.4-94.8) fL MCH 28.8 (25.6-32.2) pg MCHC 32.1 L (32.2-35.5) g/dL RDW 13.6 (11.7-14.4) % Plt Count 254 (182-369) x10^3/uL MPV 10.5 (9.4-12.3) fL Gran % 87.2 H (34.0-71.1) % Immature Gran % (Auto) 0.3 (0.001-0.429) % Nucleat RBC Rel Count 0.0 (0.00-0.2) % Eos # (Auto) 0.01 L (0.04-0.36) x10^3/uL Immature Gran # (Auto) 0.03 (0.001-0.031) x10^3u/L Absolute Lymphs (auto) 0.56 L (1.18-3.74) x10^3/uL Absolute Monos (auto) 0.63 (0.24-0.86) x10^3/uL Absolute Nucleated RBC 0.00 (0.00-0.012) x10^3u/L Lymphocytes % 5.8 L (19.3-51.7) % Monocytes % 6.5 (4.7-12.5) % Eosinophils % 0.1 L (0.7-5.8) % Basophils % 0.1 (0.1-1.2) % Absolute Granulocytes 8.45 H (1.56-6.13) x10^3/uL Basophils # 0.01 (0.01-0.08) x10^3/uL Sodium 136 (135-145) mmol/L Potassium 4.1 (3.5-5.1) mmol/L Chloride 108 H (98-107) mmol/L Carbon Dioxide 18 L (22-30) mmol/L Anion Gap 13.3 (5-15) MEQ/L BUN 28 H (7-17) mg/dL Creatinine 0.79 (0.52-1.04) mg/dL Estimated GFR 73.3 ML/MIN Glucose 137 H (74-106) mg/dL Calcium 8.9 (8.4-10.2) mg/dL Total Bilirubin 0.80 (0.2-1.3) mg/dL AST 26 (14-36) U/L ALT 16 (0-35) U/L Alkaline Phosphatase 69 (38-126) U/L Serum Total Protein 6.4 (6.3-8.2) g/dL Albumin 3.8 (3.5-5.0) g/dL Lipase 75 (23-300) U/L Urine Color (Yellow) Urine Appearance (Clear) Urine pH (4.6-8.0) Ur Specific Gully (1.005-1.030) Urine Protein (Negative) Urine Glucose (UA) (Negative) mg/dL Urine Ketones (Negative) Urine Blood (Negative) Urine Nitrite (Negative) Urine Bilirubin (Negative) Urine Urobilinogen (0.2) mg/dL Ur Leukocyte Esterase (Negative) U Hyaline Cast (Auto) (0-2) /LPF Urine Microscopic RBC (0-5) /HPF Urine Microscopic WBC (0-5) /HPF Ur Epithelial Cells (None Seen) /HPF Urine Bacteria (None Seen) /HPF Urine Culture Reflexed (NO) Influenza Type A Ag NEGATIVE (NEGATIVE) Influenza Type B Ag NEGATIVE (NEGATIVE) RSV (PCR) NEGATIVE (NEGATIVE) SARS-CoV-2 (PCR) NEGATIVE (NEGATIVE) 12/07/24 Range/Units 04:16 WBC (3.98-10.04) x10^3/uL RBC (3.93-5.22) x10^6/uL Hgb (11.2-15.7) g/dL Hct (34.1-44.9) % MCV (79.4-94.8) fL MCH (25.6-32.2) pg MCHC (32.2-35.5) g/dL RDW (11.7-14.4) % Plt Count (182-369) x10^3/uL MPV (9.4-12.3) fL Gran % (34.0-71.1) % Immature Gran % (Auto) (0.001-0.429) % Nucleat RBC Rel Count (0.00-0.2) % Eos # (Auto) (0.04-0.36) x10^3/uL Immature Gran # (Auto) (0.001-0.031) x10^3u/L Absolute Lymphs (auto) (1.18-3.74) x10^3/uL Absolute Monos (auto) (0.24-0.86) x10^3/uL Absolute Nucleated RBC (0.00-0.012) x10^3u/L Lymphocytes % (19.3-51.7) % Monocytes % (4.7-12.5) % Eosinophils % (0.7-5.8) % Basophils % (0.1-1.2) % Absolute Granulocytes (1.56-6.13) x10^3/uL Basophils # (0.01-0.08) x10^3/uL Sodium (135-145) mmol/L Potassium (3.5-5.1) mmol/L Chloride (98-107) mmol/L Carbon Dioxide (22-30) mmol/L Anion Gap (5-15) MEQ/L BUN (7-17) mg/dL Creatinine (0.52-1.04) mg/dL Estimated GFR ML/MIN Glucose (74-106) mg/dL Calcium (8.4-10.2) mg/dL Total Bilirubin (0.2-1.3) mg/dL AST (14-36) U/L ALT (0-35) U/L Alkaline Phosphatase (38-126) U/L Serum Total Protein (6.3-8.2) g/dL Albumin (3.5-5.0) g/dL Lipase (23-300) U/L Urine Color Yellow (Yellow) Urine Appearance Clear (Clear) Urine pH 5.0 (4.6-8.0) Ur Specific Gully 1.025 (1.005-1.030) Urine Protein Trace A (Negative) Urine Glucose (UA) Negative (Negative) mg/dL Urine Ketones Trace A (Negative) Urine Blood Small A (Negative) Urine Nitrite Negative (Negative) Urine Bilirubin Negative (Negative) Urine Urobilinogen 0.2 (0.2) mg/dL Ur Leukocyte Esterase Negative (Negative) U Hyaline Cast (Auto) 3-5 A (0-2) /LPF Urine Microscopic RBC 3-5 (0-5) /HPF Urine Microscopic WBC 3-5 (0-5) /HPF Ur Epithelial Cells Rare (None Seen) /HPF Urine Bacteria None Seen (None Seen) /HPF Urine Culture Reflexed YES (NO) Influenza Type A Ag (NEGATIVE) Influenza Type B Ag (NEGATIVE) RSV (PCR) (NEGATIVE) SARS-CoV-2 (PCR) (NEGATIVE) - Radiology Impressions Radiology Exams & Impressions: Radiology Procedures Category Date Time Status ABDOMEN AND PELVIS W/0 CONTRAS [CT] Stat Exams 12/07/24 02:18 Completed Assessment/Plan (1) Subacute intestinal obstruction Current Visit: Yes Status: Acute Assessment & Plan: CT scan consistent with subacute obstruction with dilated bowel loops 1. Admit to hospital 2. NPO status 3. IVFs 4. Will defer antibiotics for now, given history of allergies 5. Consider surgical consult/NGT if symptoms worsen Code(s): K56.609 - UNSP INTESTNL OBST, UNSP TO PARTIAL VERSUS COMPLETE OBST (2) Hypovolemic shock Current Visit: Yes Status: Acute Assessment & Plan: Dehydration from GI losses in setting of ARB 1. IVFs for bp support 2. Hold Losartan 3. Monitor blood pressure readings Code(s): R57.1 - HYPOVOLEMIC SHOCK (3) Metabolic acidosis Current Visit: Yes Status: Acute Assessment & Plan: Secondary to N/V, bicarb low at 18 1. IVFs, will defer sodium bicarb addition 2. Monitor bicarb level 3. ABG prn Code(s): E87.20 - ACIDOSIS, UNSPECIFIED Telemedicine Encounter - Telemedicine Encounter Telemedicine Encounter: "The entirety of this encounter was performed via Telemedicine" This visit was performed using real-time audio and video connection between my location and thepatients locationwith the assistance of a surrogateat the patients location. Written or verbal consent was obtained from the patient/guardian to perform this visit [facility] technology. Any patient questions regarding the telemedicine interaction were answered.
[2024-12-07] MEDS ORDERED: Zofran 4 MG/2 ML VIAL IV PRN (06:43)
[2024-12-07] MEDS: ENOXAPARIN SODIUM SQ SCH (10:25)
[2024-12-07] MEDS: Sodium Chloride 0.9% 1000 ML 1,000 ML IV SCH (10:25)
[2024-12-07] MEDS ORDERED: KEFLEX 500 MG PO SCH (18:00)
--- NOTE | 2024-12-08 05:18 | PCM.NOTE ---
Date and Time: 12/08/24 05 Subjective Assessment: Ms. IRVERA is a 84 year old female with a past medical history significant for hypertension, neuropathy and abdominal surgeries who presented to the hospital with complaints of abdominal pain, nausea and projectile vomiting for the past 24hours. She also noted having some watery diarrhea. No recent sick contacts. She has not been able to eat/drink much. She was hypotensive with blood pressures in the 70s upon arrival and received IVF boluses. CT scan abd was done and revealed mildly dilated jejunal and proximal ileal loops consistent with obstruction. No fever/chills. No chest pain or shortness of breath. No dysuria, hematuria or foamy urine. She does have significant allergies to most a ntibiotics but will take them intravenously. 12/08/24: Patient feeling better today. No nausea or vomiting. Tolerating CLD. No BM since yesterday, no flatulence. BP stable. Surgery consult pending. Denies fever,cough, sob, cp, abdominal pain, VAZQUEZ, dizziness, N/V/D. - Review of Systems Constitutional: No Symptoms Eyes: No Symptoms Ears, Nose, & Throat: No Symptoms Respiratory: No Symptoms Cardiac: No Symptoms Abdominal/Gastrointestinal: No Symptoms Genitourinary Symptoms: No Symptoms Musculoskeletal: No Symptoms Skin: No Symptoms Neurological: No Symptoms Psychological: No Symptoms Endocrine: No Symptoms Hematologic/Lymphatic: No Symptoms Immunological/Allergic: No Symptoms Objective Exam General Appearance: no apparent distress Neurologic Exam: alert, oriented x 3, cooperative Skin Exam: normal color Eye Exam: PERRL Ears, Nose, Throat Exam: normal ENT inspection Neck Exam: normal inspection Respiratory Exam: normal breath sounds, lungs clear Cardiovascular Exam: regular rate/rhythm, normal heart sounds Gastrointestinal/Abdomen Exam: soft, normal bowel sounds, other (hypoactive bs x 4 quads) Extremity Exam: normal inspection Back Exam: normal inspection Pelvic Exam: deferred Objective Data Vital Signs: Vital Signs - 24 hr Temp Pulse Resp BP Pulse Ox 12/08/24 04:00 97.0 F 71 18 111/52 92 L 12/08/24 00:00 97.7 F 62 18 102/58 93 L 12/07/24 20:00 97.7 F 98 H 18 105/50 12/07/24 16:00 98.2 F 54 L 16 109/52 94 L 12/07/24 11:17 97.8 F 62 16 90/52 95 12/07/24 09:13 97.9 F 67 17 98/52 92 L 12/07/24 07:01 97.9 F 67 17 98/52 92 L 12/07/24 06:34 97.9 F 67 17 98/52 92 L Pain Assessment - Last Documented Pain Intensity 0 Intake and Output: Intake & Output 12/05/24 12/06/24 12/07/24 12/08/24 11:59 11:59 11:59 11:59 Intake Total 0 1974 Balance 0 1974 Weight 69.1 kg Radiology Exams: Radiology Procedures Category Date Time Status ABDOMEN AND PELVIS W/0 CONTRAS [CT] Stat Exams 12/07/24 02:18 Completed Assessment/Plan (1) Subacute intestinal obstruction Current Visit: Yes Status: Acute Assessment & Plan: -CT scan suggest subacute obstruction -General surgery consulted appreciate recs -surgery has advanced diet to CLD -+ BM yesterday -flatulence -No N/V/D -IVF Code(s): K56.609 - UNSP INTESTNL OBST, UNSP TO PARTIAL VERSUS COMPLETE OBST (2) Hypovolemic shock Current Visit: Yes Status: Acute Assessment & Plan: Dehydration from GI losses in setting of ARB - now stable but still trending on the low side -IVFs for bp support - continue to hold Losartan- Monitor blood pressure readings Code(s): R57.1 - HYPOVOLEMIC SHOCK (3) HTN (hypertension) Current Visit: Yes Status: Acute Assessment & Plan: -currently hypotensive. Hold BP meds until BP stable Code(s): I10 - ESSENTIAL (PRIMARY) HYPERTENSION (4) Neuropathy Current Visit: Yes Status: Acute Assessment & Plan: -noted, continue meds when able Code(s): G62.9 - POLYNEUROPATHY, UNSPECIFIED (5) Metabolic acidosis Current Visit: Yes Status: Acute Assessment & Plan: Secondary to N/V, bicarb reviewed and improved at 22>18 -IVFs -Monitor bicarb level - ABG prn Code(s): E87.20 - ACIDOSIS, UNSPECIFIED
[2024-12-08 05:21] LABS: Absolute Neutrophil Ct (ANC) 1.61 x10^3/uL (1.56-6.13); BASOPHIL % 0.3 % (0.1-1.2); Basophil (Absolute #) 0.01 x10^3/uL (0.01-0.08); Eosinophil % 3.8 % (0.7-5.8); Eosinophil (Absolute #) 0.14 x10^3/uL (0.04-0.36); Hematocrit 35.6 % (34.1-44.9); Hemoglobin 11.4 g/dL (11.2-15.7); IMMATURE GRAN # 0.01 x10^3u/L (0.001-0.031); IMMATURE GRAN % 0.3 % (0.001-0.429); Lymphocyte (Absolute #) 1.25 x10^3/uL (1.18-3.74); Mean Cell Volume 92.2 fL (79.4-94.8); Mean Corpuscular Hemoglobin 29.5 pg (25.6-32.2); Mean Platelet Volume 10.7 fL (9.4-12.3); Monocyte (Absolute #) 0.66 x10^3/uL (0.24-0.86); Monocytes % 17.9 % (4.7-12.5); Neutrophil % 43.7 % (34.0-71.1); Platelet Count 201 x10^3/uL (182-369); Red Blood Count 3.86 x10^6/uL (3.93-5.22); White Blood Count 3.7 x10^3/uL (3.98-10.04)
[2024-12-08 05:38] LABS: ALBUMIN 3.2 g/dL (3.5-5.0); BILIRUBIN,TOTAL 0.6 mg/dL (0.2-1.3); Calcium 8.2 mg/dL (8.4-10.2); Creatinine 1 0.77 mg/dL (0.52-1.04); EST GLOMERULAR FILTRATION RATE 75.6 ML/MIN; MAGNESIUM 1.7 mg/dL (1.6-2.3); Potassium 3.4 mmol/L (3.5-5.1); Total Protein 5.7 g/dL (6.3-8.2)
[2024-12-08] MEDS: POTASSIUM CHLORIDE 20 mEq IN WATER 100ML 100 ML IV SCH (07:50)
[2024-12-08] MEDS: Neurontin PO SCH (10:18)
--- NOTE | 2024-12-08 16:57 | PCM.NOTE ---
reviewed. consistent with enteritis. d/w RN. pt initially with n/v/d. to ed. workup ct scan images personally reviewed with dilated sb without transition but read as possible sbo. the patient is passing flatus, n improved no emesis since admit and then had 1 diarrhea today overall feeling significantly better, tolerating liquids. medicine canceling the surgery consult for now as this does not appear obstructive. please let me know if there is worsening/failure to improve/need for surgical consult going forward.
--- NOTE | 2024-12-09 05:15 | PCM.NOTE ---
Date and Time: 12/09/24 0508 Subjective Assessment: Ms. RIVERA is a 84 year old female with a past medical history significant for hypertension, neuropathy and abdominal surgeries who presented to the hospital with complaints of abdominal pain, nausea and projectile vomiting for the past 24hours. She also noted having some watery diarrhea. No recent sick contacts. She has not been able to eat/drink much. She was hypotensive with blood pressures in the 70s upon arrival and received IVF boluses. CT scan abd was done and revealed mildly dilated jejunal and proximal ileal loops consistent with obstruction. No fever/chills. No chest pain or shortness of breath. No dysuria, hematuria or foamy urine. She does have significant allergies to most a ntibiotics but will take them intravenously. 12/08/24: Patient feeling better today. No nausea or vomiting. Tolerating CLD. No BM since yesterday, no flatulence. BP stable. Surgery consult pending. Denies fever,cough, sob, cp, abdominal pain, VAZQUEZ, dizziness, N/V/D. 12/09: Surgery has reviewed patient's scan and feels this is consistent with eneritis rather than obstructive. Patient tolerating diet, passing flatus, and having diarrhea. Plan to advance diet as tolerated with possible dismissal today. Objective Data Vital Signs: Vital Signs - 24 hr Temp Pulse Resp BP Pulse Ox 12/09/24 04:00 98.0 F 55 L 20 106/52 94 L 12/09/24 00:00 97.7 F 68 19 102/51 92 L 12/08/24 20:00 97.7 F 79 20 144/59 94 L 12/08/24 16:00 96.9 F 56 L 10 L 127/61 94 L 12/08/24 12:00 97.5 F 63 20 105/56 97 12/08/24 06:52 97.1 F 69 16 116/56 94 L Pain Assessment - Last Documented Pain Intensity 0 Intake and Output: Intake & Output 12/06/24 12/07/24 12/08/24 12/09/24 11:59 11:59 11:59 11:59 Intake Total 0 2219 1914 Balance 0 2219 1914 Weight 69.1 kg 70 kg Lab Results: Lab Results-Last 24 Hours 01/11/25 01/11/25 01/11/25 Range/Units 05:05 05:05 11:59 WBC 3.7 L (3.98-10.04) x10^3/uL RBC 3.86 L (3.93-5.22) x10^6/uL Hgb 11.4 (11.2-15.7) g/dL Hct 35.6 (34.1-44.9) % MCV 92.2 (79.4-94.8) fL MCH 29.5 (25.6-32.2) pg MCHC 32.0 L (32.2-35.5) g/dL RDW 14.0 (11.7-14.4) % Plt Count 201 (182-369) x10^3/uL MPV 10.7 (9.4-12.3) fL Gran % 43.7 (34.0-71.1) % Immature Gran % (Auto) 0.3 (0.001-0.429) % Nucleat RBC Rel Count 0.0 (0.00-0.2) % Eos # (Auto) 0.14 (0.04-0.36) x10^3/uL Immature Gran # (Auto) 0.01 (0.001-0.031) x10^3u/L Absolute Lymphs (auto) 1.25 (1.18-3.74) x10^3/uL Absolute Monos (auto) 0.66 (0.24-0.86) x10^3/uL Absolute Nucleated RBC 0.00 (0.00-0.012) x10^3u/L Lymphocytes % 34.0 (19.3-51.7) % Monocytes % 17.9 H (4.7-12.5) % Eosinophils % 3.8 (0.7-5.8) % Basophils % 0.3 (0.1-1.2) % Absolute Granulocytes 1.61 (1.56-6.13) x10^3/uL Basophils # 0.01 (0.01-0.08) x10^3/uL Sodium 140 (135-145) mmol/L Potassium 3.4 L 4.2 D (3.5-5.1) mmol/L Chloride 111 H (98-107) mmol/L Carbon Dioxide 22 (22-30) mmol/L Anion Gap 10.0 (5-15) MEQ/L BUN 17 (7-17) mg/dL Creatinine 0.77 (0.52-1.04) mg/dL Estimated GFR 75.6 ML/MIN Glucose 78 (74-106) mg/dL Calcium 8.2 L (8.4-10.2) mg/dL Magnesium 1.7 (1.6-2.3) mg/dL Total Bilirubin 0.60 (0.2-1.3) mg/dL AST 24 (14-36) U/L ALT 12 (0-35) U/L Alkaline Phosphatase 56 (38-126) U/L Serum Total Protein 5.7 L (6.3-8.2) g/dL Albumin 3.2 L (3.5-5.0) g/dL 12/08/24 Range/Units 17:00 WBC (3.98-10.04) x10^3/uL RBC (3.93-5.22) x10^6/uL Hgb (11.2-15.7) g/dL Hct (34.1-44.9) % MCV (79.4-94.8) fL MCH (25.6-32.2) pg MCHC (32.2-35.5) g/dL RDW (11.7-14.4) % Plt Count (182-369) x10^3/uL MPV (9.4-12.3) fL Gran % (34.0-71.1) % Immature Gran % (Auto) (0.001-0.429) % Nucleat RBC Rel Count (0.00-0.2) % Eos # (Auto) (0.04-0.36) x10^3/uL Immature Gran # (Auto) (0.001-0.031) x10^3u/L Absolute Lymphs (auto) (1.18-3.74) x10^3/uL Absolute Monos (auto) (0.24-0.86) x10^3/uL Absolute Nucleated RBC (0.00-0.012) x10^3u/L Lymphocytes % (19.3-51.7) % Monocytes % (4.7-12.5) % Eosinophils % (0.7-5.8) % Basophils % (0.1-1.2) % Absolute Granulocytes (1.56-6.13) x10^3/uL Basophils # (0.01-0.08) x10^3/uL Sodium (135-145) mmol/L Potassium 4.2 (3.5-5.1) mmol/L Chloride (98-107) mmol/L Carbon Dioxide (22-30) mmol/L Anion Gap (5-15) MEQ/L BUN (7-17) mg/dL Creatinine (0.52-1.04) mg/dL Estimated GFR ML/MIN Glucose (74-106) mg/dL Calcium (8.4-10.2) mg/dL Magnesium (1.6-2.3) mg/dL Total Bilirubin (0.2-1.3) mg/dL AST (14-36) U/L ALT (0-35) U/L Alkaline Phosphatase (38-126) U/L Serum Total Protein (6.3-8.2) g/dL Albumin (3.5-5.0) g/dL Assessment/Plan (1) Subacute intestinal obstruction Current Visit: Yes Status: Acute Assessment & Plan: -CT scan suggest subacute obstruction -General surgery consulted appreciate recs -surgery has advanced diet to CLD -+ BM yesterday -flatulence -No N/V/D -IVF 12/09: -Surgery reviewed case and feels this is enteritis vs obstruction -continue to advance diet today- if tolerating regular diet can discharge home Code(s): K56.609 - UNSP INTESTNL OBST, UNSP TO PARTIAL VERSUS COMPLETE OBST (2) Hypovolemic shock Current Visit: Yes Status: Acute Assessment & Plan: Dehydration from GI losses in setting of ARB - now stable but still trending on the low side -IVFs for bp support - continue to hold Losartan- Monitor blood pressure readings 12/09: -BP stable but soft, continue to hold bp meds until follow up with pcp -IVF have been d/c Code(s): R57.1 - HYPOVOLEMIC SHOCK (3) HTN (hypertension) Current Visit: Yes Status: Acute Assessment & Plan: -currently hypotensive. Hold BP meds until BP stable 12/09: -resolved Code(s): I10 - ESSENTIAL (PRIMARY) HYPERTENSION (4) Neuropathy Current Visit: Yes Status: Acute Assessment & Plan: -noted, continue meds when able Code(s): G62.9 - POLYNEUROPATHY, UNSPECIFIED (5) Metabolic acidosis Current Visit: Yes Status: Acute Assessment & Plan: Secondary to N/V, bicarb reviewed and improved at 22>18 -IVFs -Monitor bicarb level - ABG prn -resolved on 12/08 Code(s): K56.609 - UNSP INTESTNL OBST, UNSP TO PARTIAL VERSUS COMPLETE OBST (2) Hypovolemic shock Current Visit: Yes Status: Acute Code(s): R57.1 - HYPOVOLEMIC SHOCK (3) HTN (hypertension) Current Visit: Yes Status: Acute Code(s): I10 - ESSENTIAL (PRIMARY) HYPERTENSION (4) Neuropathy Current Visit: Yes Status: Acute Code(s): G62.9 - POLYNEUROPATHY, UNSPECIFIED (5) Metabolic acidosis Current Visit: Yes Status: Acute Code(s): E87.20 - ACIDOSIS, UNSPECIFIED
[2024-12-09 06:17] LABS: Absolute Neutrophil Ct (ANC) 1.61 x10^3/uL (1.56-6.13); BASOPHIL % 0.5 % (0.1-1.2); Basophil (Absolute #) 0.02 x10^3/uL (0.01-0.08); Eosinophil % 5.6 % (0.7-5.8); Eosinophil (Absolute #) 0.21 x10^3/uL (0.04-0.36); Hematocrit 34.8 % (34.1-44.9); Hemoglobin 11.3 g/dL (11.2-15.7); IMMATURE GRAN # 0.01 x10^3u/L (0.001-0.031); IMMATURE GRAN % 0.3 % (0.001-0.429); Lymphocyte (Absolute #) 1.38 x10^3/uL (1.18-3.74); Lymphocytes % 36.9 % (19.3-51.7); Mean Cell Volume 88.8 fL (79.4-94.8); Mean Corpuscular Hemoglobin 28.8 pg (25.6-32.2); Mean Corpuscular Hgb Concent. 32.5 g/dL (32.2-35.5); Mean Platelet Volume 10.4 fL (9.4-12.3); Monocyte (Absolute #) 0.51 x10^3/uL (0.24-0.86); Monocytes % 13.6 % (4.7-12.5); Neutrophil % 43.1 % (34.0-71.1); Platelet Count 225 x10^3/uL (182-369); Red Blood Count 3.92 x10^6/uL (3.93-5.22); Red Cell Distribution Width 13.5 % (11.7-14.4); White Blood Count 3.7 x10^3/uL (3.98-10.04)
[2024-12-09 06:32] LABS: ALBUMIN 3.4 g/dL (3.5-5.0); ANION GAP 11.3 MEQ/L (5-15); BILIRUBIN,TOTAL 0.8 mg/dL (0.2-1.3); Calcium 8.9 mg/dL (8.4-10.2); Creatinine 1 0.67 mg/dL (0.52-1.04); EST GLOMERULAR FILTRATION RATE 85.6 ML/MIN; MAGNESIUM 1.7 mg/dL (1.6-2.3); Potassium 3.9 mmol/L (3.5-5.1); Total Protein 5.9 g/dL (6.3-8.2)
--- NOTE | 2024-12-09 09:35 | PCM.DS ---
Discharge Summary Date of Admission: 12/07/24 05:41 Date of Discharge: 12/09/24 Admitting Physician: YANET ANTUNEZ MD Consults: Consults on Case 12/07/24 07:26 Consult Surgery ROUTINE Primary Care Provider: JANAE SEXTON Allergies Allergies acetaminophen [From Tylenol] Allergy (Severe, Verified 12/07/24 06:05) amoxicillin Adverse Reaction (Verified 12/07/24 00:43) clarithromycin Adverse Reaction (Verified 12/07/24 00:46) levofloxacin Adverse Reaction (Verified 12/07/24 00:45) Tetracyclines Adverse Reaction (Verified 12/07/24 00:45) Hospital Summary - Hospital Course Hospital Course: Ms. RIVERA is a 84 year old female with a past medical history significant for hypertension, neuropathy and abdominal surgeries who presented to the hospital with complaints of abdominal pain, nausea and projectile vomiting for the past 24hours. She also noted having some watery diarrhea. No recent sick contacts. She has not been able to eat/drink much. She was hypotensive with blood pressur es in the 70s upon arrival and received IVF boluses. CT scan abd was done and revealed mildly dilated jejunal and proximal ileal loops consistent with obstruction. No fever/chills. No chest pain or shortness of breath. No dysuria, hematuria or foamy urine. She does have significant allergies to most antibiotics but will take them intravenously. Surgery has reviewed patient's scan and feels this is consistent with eneritis rather than obstructive. Patient tolerating full Discharge Note New Diagnosis: viral gastroenteritis New Medications: Follow Up: Results pending: Outpatient testing to order: Latest Assessment & Plan ##Viral gastroenteritis (1) Subacute intestinal obstruction Current Visit: Yes Status: Acute Assessment & Plan: -CT scan suggest subacute obstruction -General surgery consulted appreciate recs -surgery has advanced diet to CLD -+ BM yesterday -flatulence -No N/V/D -IVF 12/09: -Surgery reviewed case and feels this is enteritis vs obstruction -continue to advance diet today- if tolerating regular diet can discharge home -tolerating full diet with no n/v - can discharge home today with f/u OP with PCP Code(s): K56.609 - UNSP INTESTNL OBST, UNSP TO PARTIAL VERSUS COMPLETE OBST (2) Hypovolemic shock Current Visit: Yes Status: Acute Assessment & Plan: Dehydration from GI losses in setting of ARB - now stable but still trending on the low side -IVFs for bp support - continue to hold Losartan- Monitor blood pressure readings 12/09: -BP stable but soft, continue to hold bp meds until follow up with pcp -IVF have been d/c Code(s): R57.1 - HYPOVOLEMIC SHOCK (3) HTN (hypertension) Current Visit: Yes Status: Acute Assessment & Plan: -currently hypotensive. Hold BP meds until BP stable 12/09: -resolved Code(s): I10 - ESSENTIAL (PRIMARY) HYPERTENSION (4) Neuropathy Current Visit: Yes Status: Acute Assessment & Plan: -noted, continue meds when able Code(s): G62.9 - POLYNEUROPATHY, UNSPECIFIED (5) Metabolic acidosis Current Visit: Yes Status: Acute Assessment & Plan: Secondary to N/V, bicarb reviewed and improved at 22>18 -IVFs -Monitor bicarb level - ABG prn -resolved on 12/08 I spent 35 minutes [id number] with the patient on the day of discharge performing discharge exam, discussing hospital stay and discharge instructions with patient and caregivers, preparation of discharge records, prescriptions & referral forms and addressing any questions/concerns the patient had as documented above.diet, passing flatus, and having diarrhea. - Vitals & Intake/Output Vital Signs: Vital Signs Temperature 97.3 F 12/09/24 07:07 Pulse Rate 85 12/09/24 07:07 Respiratory Rate 18 12/09/24 07:07 Blood Pressure 122/73 12/09/24 07:07 O2 Sat by Pulse Oximetry 97 12/09/24 07:07 Intake & Output: Intake & Output 12/06/24 12/07/24 12/08/24 12/09/24 11:59 11:59 11:59 11:59 Intake Total 0 2219 1914 Balance 0 2219 191 Weight 69.1 kg 70 kg 69.3 kg - Lab Result Diagrams: 12/09/24 06:05 12/09/24 06:05 Lab Results-Last 24 Hrs: Lab Results-Last 24 Hours 12/08/24 12/08/24 12/09/24 Range/Units 11:59 17:00 06:05 WBC 3.7 L (3.98-10.04) x10^3/uL RBC 3.92 L (3.93-5.22) x10^6/uL Hgb 11.3 (11.2-15.7) g/dL Hct 34.8 (34.1-44.9) % MCV 88.8 (79.4-94.8) fL MCH 28.8 (25.6-32.2) pg MCHC 32.5 (32.2-35.5) g/dL RDW 13.5 (11.7-14.4) % Plt Count 225 (182-369) x10^3/uL MPV 10.4 (9.4-12.3) fL Gran % 43.1 (34.0-71.1) % Immature Gran % (Auto) 0.3 (0.001-0.429) % Nucleat RBC Rel Count 0.0 (0.00-0.2) % Eos # (Auto) 0.21 (0.04-0.36) x10^3/uL Immature Gran # (Auto) 0.01 (0.001-0.031) x10^3u/L Absolute Lymphs (auto) 1.38 (1.18-3.74) x10^3/uL Absolute Monos (auto) 0.51 (0.24-0.86) x10^3/uL Absolute Nucleated RBC 0.00 (0.00-0.012) x10^3u/L Lymphocytes % 36.9 (19.3-51.7) % Monocytes % 13.6 H (4.7-12.5) % Eosinophils % 5.6 (0.7-5.8) % Basophils % 0.5 (0.1-1.2) % Absolute Granulocytes 1.61 (1.56-6.13) x10^3/uL Basophils # 0.02 (0.01-0.08) x10^3/uL Sodium (135-145) mmol/L Potassium 4.2 D 4.2 (3.5-5.1) mmol/L Chloride (98-107) mmol/L Carbon Dioxide (22-30) mmol/L Anion Gap (5-15) MEQ/L BUN (7-17) mg/dL Creatinine (0.52-1.04) mg/dL Estimated GFR ML/MIN Glucose (74-106) mg/dL Calcium (8.4-10.2) mg/dL Magnesium (1.6-2.3) mg/dL Total Bilirubin (0.2-1.3) mg/dL AST (14-36) U/L ALT (0-35) U/L Alkaline Phosphatase (38-126) U/L Serum Total Protein (6.3-8.2) g/dL Albumin (3.5-5.0) g/dL 12/09/24 Range/Units 06:05 WBC (3.98-10.04) x10^3/uL RBC (3.93-5.22) x10^6/uL Hgb (11.2-15.7) g/dL Hct (34.1-44.9) % MCV (79.4-94.8) fL MCH (25.6-32.2) pg MCHC (32.2-35.5) g/dL RDW (11.7-14.4) % Plt Count (182-369) x10^3/uL MPV (9.4-12.3) fL Gran % (34.0-71.1) % Immature Gran % (Auto) (0.001-0.429) % Nucleat RBC Rel Count (0.00-0.2) % Eos # (Auto) (0.04-0.36) x10^3/uL Immature Gran # (Auto) (0.001-0.031) x10^3u/L Absolute Lymphs (auto) (1.18-3.74) x10^3/uL Absolute Monos (auto) (0.24-0.86) x10^3/uL Absolute Nucleated RBC (0.00-0.012) x10^3u/L Lymphocytes % (19.3-51.7) % Monocytes % (4.7-12.5) % Eosinophils % (0.7-5.8) % Basophils % (0.1-1.2) % Absolute Granulocytes (1.56-6.13) x10^3/uL Basophils # (0.01-0.08) x10^3/uL Sodium 139 (135-145) mmol/L Potassium 3.9 (3.5-5.1) mmol/L Chloride 111 H (98-107) mmol/L Carbon Dioxide 21 L (22-30) mmol/L Anion Gap 11.3 (5-15) MEQ/L BUN 9 (7-17) mg/dL Creatinine 0.67 (0.52-1.04) mg/dL Estimated GFR 85.6 ML/MIN Glucose 79 (74-106) mg/dL Calcium 8.9 (8.4-10.2) mg/dL Magnesium 1.7 (1.6-2.3) mg/dL Total Bilirubin 0.80 (0.2-1.3) mg/dL AST 27 (14-36) U/L ALT 14 (0-35) U/L Alkaline Phosphatase 57 (38-126) U/L Serum Total Protein 5.9 L (6.3-8.2) g/dL Albumin 3.4 L (3.5-5.0) g/dL Micro Results-Entire Visit: Microbiology 12/07/24 04:16 Urine Culture - Preliminary Urine, Void NO GROWTH TO DATE Discharge Exam General Appearance: no apparent distress Neurologic Exam: alert, oriented x 3, cooperative Eye Exam: PERRL Ears, Nose, Throat Exam: normal ENT inspection Neck Exam: normal inspection Respiratory Exam: normal breath sounds, lungs clear Cardiovascular Exam: regular rate/rhythm, normal heart sounds Gastrointestinal/Abdomen Exam: soft, normal bowel sounds Pelvic Exam: deferred Rectal Exam: deferred Back Exam: normal inspection Extremity Exam: normal inspection Skin Exam: normal color Final Diagnosis/Problem List - Final Discharge Diagnosis/Problem (1) Viral gastroenteritis Current Visit: Yes Status: Resolved Code(s): A08.4 - VIRAL INTESTINAL INFECTION, UNSPECIFIED (2) Subacute intestinal obstruction Current Visit: Yes Status: Ruled-out Code(s): K56.609 - UNSP INTESTNL OBST, UNSP TO PARTIAL VERSUS COMPLETE OBST (3) Hypovolemic shock Current Visit: Yes Status: Resolved Code(s): R57.1 - HYPOVOLEMIC SHOCK (4) HTN (hypertension) Current Visit: Yes Status: Chronic Code(s): I10 - ESSENTIAL (PRIMARY) HYPERTENSION (5) Neuropathy Current Visit: Yes Status: Chronic Code(s): G62.9 - POLYNEUROPATHY, UNSPECIFIED (6) Metabolic acidosis Current Visit: Yes Status: Resolved Code(s): E87.20 - ACIDOSIS, UNSPECIFIED - Discharge Discharge Date: 12/09/24 Disposition: Home, Self-Care Condition: Stable Prescriptions: Continue Losartan Potassium 25 mg PO DAILY Aspirin 81 gm Chew [Baby Aspirin 81 mg Chew] 1 tab PO DAILY Gabapentin 100 mg PO TID Follow up with: EDMUNDO ARENAS MD [ACTIVE STAFF] - JANAE SEXTON [Primary Care Provider] - 12/14/24 9:30 am
[2024-12-09 11:35] VITALS: BP 141/63; PULSE 75; RESP 17; TEMP 97.4; O2SAT 94
== END 2024-12-09 14:02 | disposition home or self-care (01) ==
LOC: ED 00:16 → MED SURG 05:41
PROVIDERS: ADMIT Internal Medicine Nephrology; ATTEND Internal Medicine Nephrology
DX: A08.4 Viral intestinal infection, unspecified (principal); K56.609 Unspecified intestinal obstruction, unspecified as to partial versus complete obstruction; R57.1 Hypovolemic shock; I10 Essential (primary) hypertension; G62.9 Polyneuropathy, unspecified; E87.20 Acidosis, unspecified; I25.10 Atherosclerotic heart disease of native coronary artery without angina pectoris; R19.7 Diarrhea, unspecified; E78.5 Hyperlipidemia, unspecified
CPT/HCPCS: 0241U; 36415; 74176; 80053; 81001; 83690; 83735; 84132; 85025; 87086; 93268; 96360; 96374; 99285; G0378; Q3014; J1650; J2405; J3480; A9270-GY

== ENCOUNTER 2025-01-07 07:34 | Emergency (ER) | payer MEDICARE ==
[2025-01-07 07:59] VITALS: TEMP 97.5; O2SAT 99
--- NOTE | 2025-01-07 08:17 | ERPHSYRPT ---
- History of Present Illness Time Seen by Provider: 01/07/25 08:10 Source: patient Exam Limitations: clinical condition Patient Subjective Stated Complaint: C/O fall this am. Patient walking her treadmill this am, indicates she doesn't see too well and must have hit the wr jah button on the machine because it sped up quickly and threw her off the back of it. C/O headache, pain to left side of face, left ribs, LLE. Patient did not lose conciousness and can recall events without difficulties. Denies N/V or dizziness. Triage Nursing Assessment: Patient ambulated back to ER without difficulties; slow steady gait. She is alert and oriented. No SOB. Superficial abrasions noted to left side of nose and chin; no active bleeding. Areas are beginning to swell, patient given an ice pack. Patient holding left rib area; indicates this is where the most pain is located. No skin alterations noted to rib area at this time or back; ice pack also applied to left rib area. Ice pack applied to LLE between knee and ankle due to c/o pain here as well. No current skin alterations but area is swollen. Timing/Duration: today Severity: mild Allergies/Adverse Reactions: acetaminophen [From Tylenol] Allergy (Severe, Verified 01/07/25 07:42) Influenza Virus Vaccines Allergy (Verified 01/07/25 07:45) amoxicillin Adverse Reaction (Verified 01/07/25 07:42) clarithromycin Adverse Reaction (Verified 01/07/25 07:42) levofloxacin Adverse Reaction (Verified 01/07/25 07:42) Tetracyclines Adverse Reaction (Verified 01/07/25 07:42) Home Medications: Aspirin 81 gm Chew [Baby Aspirin 81 mg Chew] 1 tab PO DAILY 12/07/24 [History] Gabapentin 100 mg PO TID 12/07/24 [History] Losartan Potassium 25 mg PO DAILY 12/07/24 [History] Hx Tetanus, Diphtheria Vaccination/Date Given: Yes Hx Influenza Vaccination/Date Given: No (Allergic) Hx Pneumococcal Vaccination/Date Given: No Travel Risk - International Travel Have you traveled outside of the country in past 3 weeks: No - Emerging Infectious Disease Are you exhibiting symptoms associated with any current EIDs: No Symptoms: Diarrhea, Vomitting - Review of Systems Constitutional: No Symptoms Eyes: No Symptoms Ears, Nose, & Throat: No Symptoms Respiratory: No Symptoms Cardiac: No Symptoms, Other (left sided chest wall pain after falling) Genitourinary Symptoms: No Symptoms Musculoskeletal: Joint Pain (minimal facial pain after falling ) - Past Medical History Pertinent Past Medical History: Yes Neurological History: Peripheral Neuropathy, Stroke ENT History: Macular Degeneration, Other Cardiac History: Angina, Coronary Artery Disease, High Cholesterol, Hypertension Respiratory History: Pneumonia Endocrine Medical History: No Pertinent History Musculoskeletal History: Degenerative Disk Disease, Fractures, Osteoarthritis GI Medical History: GERD, Hernia, Other History: No Pertinent History Psycho-Social History: No Pertinent History Female Reproductive Disorders: No Pertinent History Other Medical History: 10/2024 (CVA, with residual L side weakness), cervical fracture, L shoulder, arm, hip, knee, and tibia fractures after sustaining fall while walking with her friend at the gym, esophageal stricture, skin cancer, R ear hearing loss - Past Surgical History Past Surgical History: Yes Neuro Surgical History: No Pertinent History Cardiac: No Pertinent History Respiratory: No Pertinent History Gastrointestinal: Appendectomy, Cholecystectomy, Hernia Repair, Other Genitourinary: No Pertinent History, Other Musculoskeletal: No Pertinent History Female Surgical History: Hysterectomy Other Surgical History: Esophageal repair, fatty tumor of L scapular area and abdominal region - Social History Smoking Status: Never smoker Exposure to second hand smoke: No Drug Use: none Patient Lives Alone: No - Social Determinants of Health Will the patient participate in the screening: Yes Do you worry about a steady place to live?: No Do you have any problems with any of the following?: No known problems In the past 12 months,have you had to go without utilities?: No Transportation Issues: No Has anyone in your support network made you feel unsafe?: No Have you or anyone in your house had to go without enough: No - Nursing Vital Signs Nursing Vital Signs: Initial Vital Signs Temperature 97.5 F 01/07/25 07:35 Pulse Rate 83 01/07/25 07:35 Respiratory Rate 19 01/07/25 07:35 Blood Pressure 117/74 01/07/25 07:35 O2 Sat by Pulse Oximetry 99 01/07/25 07:35 Pain Scale Pain Intensity 8 - Physical Exam General Appearance: no apparent distress Eye Exam: PERRL/EOMI Ears, Nose, Throat Exam: normal ENT inspection, other (small facial abrasions to the left upper lip ) Respiratory Exam: normal breath sounds, chest tenderness (patient is tender to the left chest wall with palpation ) Cardiovascular Exam: regular rate/rhythm Gastrointestinal/Abdomen Exam: soft, normal bowel sounds SpO2: 99 Ordered Tests: Active Orders 24 hr Category Date Time Status CERVICAL SPINE WO CONTRAST [CT] Stat Exams 01/07/25 08:01 Completed CHEST WITHOUT CONTRAST [CT] Stat Exams 01/07/25 08:13 Completed FACIAL BONES WO CONTRAST [CT] Stat Exams 01/07/25 08:01 Completed HEAD WITHOUT CONTRAST [CT] Stat Exams 01/07/25 08:01 Completed LOWER LEG Stat Exams 01/07/25 08:01 Completed Medication Summary Generic Name Dose Route Start Last Admin Trade Name Freq PRN Reason Stop Dose Admin Ondansetron HCl 4 mg 01/07/25 08:18 01/07/25 08:41 Zofran 4 Mg/Udtablet Orally Disintegrating PO 02/06/25 08:17 4 mg Q4H PRN PRN Administration NAUSEA/VOMITING Discontinued Medications Generic Name Dose Route Start Last Admin Trade Name Freq PRN Reason Stop Dose Admin Morphine Sulfate 4 mg 01/07/25 08:17 01/07/25 08:41 Morphine Sulfate 4 Mg/Ml Injection IM 01/07/25 08:18 4 mg STAT ONE Administration Morphine Sulfate Confirm 01/07/25 08:40 Morphine Sulfate 4 Mg/Ml Injection Administered 01/07/25 08:41 Dose 4 mg .ROUTE .[facility] - Progress Progress Note: patient was seen and evaluated post fall ct of the head neck and facial bones were obtained these revealed nasal bone fracture and Impression: 1. Minimally depressed left nasal bone fracture. 2. Chronic findings including osteopenia, right orbit postsurgical changes, and minimal nasal septal deviation. fracture of the ribs she was updated with the results and will be discharged home with analgesia and ent and primary care follow up- she was given head injury precautions 01/07/25 10:12 Medical Desision Making - Discussion of managment Agreed on:: need for follow-up Will see patient: In office - Departure Departure Disposition: Home Clinical Impression: Ribs, multiple fractures, Nasal bone fracture, Ground-level fall Condition: Stable Critical Care Time: No Referrals: JANAE SEXTON [Primary Care Provider] - Follow up/PCP as directed
[2025-01-07] MEDS ORDERED: ZOFRAN ODT 4 MG ONE (08:40)
[2025-01-07] MEDS ORDERED: MORPHINE SULFATE 4 MG INJ ONE (08:40)
[2025-01-07] MEDS: MORPHINE SULFATE 4 MG INJ IM ONE (08:41)
[2025-01-07] MEDS: ZOFRAN ODT 4 MG PO PRN (08:41)
--- NOTE | 2025-01-07 09:29 | XRAY ---
Indication: Status post fall. Multiple contiguous axial images obtained through the head without contrast. Comparison: None Age-appropriate global atrophy and minimal periventricular degenerative micro-ischemia. No acute intracranial hemorrhage, abnormal extra-axial fluid collection, or mass effect. Fourth ventricle is midline without hydrocephalus bony calvarium intact. Visualized paranasal sinuses and mastoid air cells are clear. Impression: Nonacute senile brain.
--- NOTE | 2025-01-07 09:39 | XRAY ---
Indication: Status post fall. Multiple contiguous axial images obtained through the cervical spine. Sagittal and coronal reformatted images obtained. Comparison: None Osseous structures demineralized. Axial images negative for acute fracture, suspicious bony lesions, or spinal canal stenosis. Minimal/mild C4-T1 degenerative endplate spurring and mild/moderate multilevel left degenerative facet hypertrophy. Sagittal and coronal reformatted images demonstrates lordotic straightening, positional versus paraspinal spasm. 2 mm anterolisthesis C4 on C5. C5-C7 disc space loss. No acute compression fracture or jumped facet. Normal appearing craniocervical junction. Visualized noncontrasted soft tissues are unremarkable. CT head and CT chest reported severally. Impression: 1. Negative acute fracture. 2. Cervical lordotic straightening, positional versus paraspinal spasm. 2. Chronic findings including osteopenia, multilevel degenerative spondylosis, and minimal grade 1 listhesis C4 on C5.
--- NOTE | 2025-01-07 09:43 | XRAY ---
Indication: Pain following fall. Comparison: None 2 view left lower leg demonstrates osteopenia. No acute bony, articular, or soft tissue abnormalities.
--- NOTE | 2025-01-07 09:49 | XRAY ---
Indication: Status post fall. Multiple contiguous axial images obtained through the facial bones. Sagittal and coronal reformatted images obtained. Comparison: None Osseous structures demineralized. A few dental amalgams produces beam artifact. Minimally depressed left nasal bone fracture. No other acute fracture or suspicious bony lesions. Orbits including roof, mercer, and floors intact. Paranasal sinuses and nasal passages are clear. Minimal nasal septal deviation to the left. Right orbit appears smaller with surrounding air presumed iatrogenic/postsurgical. Remaining visualized noncontrasted soft tissues are unremarkable. Impression: 1. Minimally depressed left nasal bone fracture. 2. Chronic findings including osteopenia, right orbit postsurgical changes, and minimal nasal septal deviation.
--- NOTE | 2025-01-07 09:59 | XRAY ---
Indication: Left rib pain following fall. Multiple contiguous axial images obtained through the chest without contrast. Comparison: None Lungs hyperinflated with scattered bilateral mid to lower lung subsegmental atelectasis/scarring. Tiny posterior left lung base calcified granuloma. No suspicious pulmonary mass/nodule, infiltrate, effusion, or pneumothorax. Heart not enlarged with scattered coronary calcifications. Aorta mildly arteriosclerotic without aneurysm. Small mediastinal and left hilar calcified nodes. No pathologic mediastinal lymphadenopathy. Moderate-sized hiatal hernia. Bony thorax demonstrates osteopenia, minimal/mild degenerative changes throughout spine, and superior L1 Schmorl node. Incidental tiny cortical fractures left 3-7 anterior ribs. Limited upper abdomen demonstrates a few hepatic/splenic calcified granulomas and previous cholecystectomy. Impression: 1. Tiny cortical fractures left 3-7 ribs. 3. Chronic findings including atelectasis/scarring, arteriosclerotic disease, chronic bony findings, hiatal hernia, and old granulomatous disease.
[2025-01-07 10:53] VITALS: BP 103/71; PULSE 70; RESP 18
== END 2025-01-07 10:54 | disposition home or self-care (01) ==
LOC: ED 07:34
DX: S22.42XA Multiple fractures of ribs, left side, initial encounter for closed fracture (principal); S02.2XXA Fracture of nasal bones, initial encounter for closed fracture; W18.39XA Other fall on same level, initial encounter; Y93.A1 Activity, exercise machines primarily for cardiorespiratory conditioning; R51.9 Headache, unspecified; E78.5 Hyperlipidemia, unspecified; I10 Essential (primary) hypertension; Z79.899 Other long term (current) drug therapy
CPT/HCPCS: 70450; 70486; 71250; 72125; 73590; 96372; 99284; J2270; Q0162

== ENCOUNTER 2025-06-26 13:46 | Day surgery (SDC) | payer MEDICARE ==
[2013-08-03 13:23] VITALS: BP 118/75
[2025-06-26] MEDS ORDERED: Depo-Medrol 40 MG/ML IM ONE (13:47)
[2025-06-26] MEDS ORDERED: Marcaine Mpf 0.5% Vial 30 Ml IJ ONE (13:47)
[2025-06-26] MEDS ORDERED: XYLOCAINE 1% HCL 20 ML MDV IJ ONE (13:47)
[2025-06-26] MEDS ORDERED: propofoL IV ONE (15:46)
[2025-06-26] MEDS ORDERED: Lactated Ringers 1,000 ML IV ONE (16:34)
--- NOTE | 2025-06-26 16:59 | XRAY ---
Indication: Right greater trochanter bursa and right piriformis injection. Intraoperative fluoroscopy provided for 12 seconds. 2 digital spot image submitted for interpretation demonstrates posterior needle tip projecting over right piriformis. Second needle tip lateral to right greater trochanter. Small amount of contrast injected for needle tip placement. Correlate with intraoperative findings/report.
--- NOTE | 2025-06-26 19:39 | XRAY ---
12 seconds of fluoroscopy were used in surgery for a right greater trochanteric bursa injection and a right piriformis muscle injection.
== END 2025-06-26 16:12 | disposition home or self-care (01) ==
LOC: SDC-PAIN 13:46
PROVIDERS: ATTEND Psychiatry & Neurology Pain Medicine
DX: M70.61 Trochanteric bursitis, right hip (principal); M79.18 Myalgia, other site

== ENCOUNTER 2025-10-09 08:56 | Day surgery (SDC) | payer MEDICARE ==
[2013-08-03 13:23] VITALS: BP 118/75
[2025-10-09] MEDS ORDERED: methylPREDNISolone acetate IM ONE (08:57)
[2025-10-09] MEDS ORDERED: Sodium Chloride 0.9(Preservative Free) 10 ML IJ ONE (08:57)
[2025-10-09] MEDS ORDERED: LIDOCAINE HCL 1% 50 MG/5 ML VL IJ ONE (08:57)
[2025-10-09] MEDS ORDERED: propofoL IV ONE (11:04)
[2025-10-09] MEDS ORDERED: Lactated Ringers 1,000 ML IV ONE (11:27)
--- NOTE | 2025-10-09 12:14 | XRAY ---
13 seconds of fluoroscopy was used in surgery for a right piriformis injection.
--- NOTE | 2025-10-09 12:14 | XRAY ---
22 seconds of fluoroscopy was used in surgery for a caudal SUDHA.
--- NOTE | 2025-10-09 12:18 | XRAY ---
Indication: Caudal SDUHA. Intraoperative fluoroscopy provided for 22 seconds. Single digital spot image submitted for interpretation demonstrates caudal needle tip projecting mid sacrum. Small amount of contrast injected for needle tip placement. Correlate with intraoperative findings/report.
--- NOTE | 2025-10-09 12:18 | XRAY ---
Indication: Right piriformis injection. Intraoperative fluoroscopy provided for 13 seconds. Single digital spot image submitted for interpretation demonstrates posterior needle tip projecting over right piriformis. Small amount of contrast injected for needle tip placement. Correlate with intraoperative findings/report.
== END 2025-10-09 11:38 | disposition home or self-care (01) ==
LOC: SDC-PAIN 08:56
PROVIDERS: ATTEND Psychiatry & Neurology Pain Medicine
DX: M54.16 Radiculopathy, lumbar region (principal); M79.18 Myalgia, other site